=== PATIENT | male | born 1945 | race Caucasian/White ===

== ENCOUNTER 2017-07-13 23:42 | Emergency (ER) | payer MEDICARE ==
[~2017-07-13] VITALS: Ht 167.6 cm; Wt 85.3 kg
[2017-07-13 23:47] VITALS: BP 160/76; PULSE 69; RESP 14; TEMP 97.7; O2SAT 96
[2017-07-14] MEDS ORDERED: AMLO10TA2 PO (00:07)
[2017-07-14] MEDS ORDERED: LOVA10TA PO (00:07)
[2017-07-14] MEDS ORDERED: LOVA40TA PO (00:07)
[2017-07-14] MEDS ORDERED: TAMS5CAP PO (00:07)
[2017-07-14] MEDS ORDERED: FINA5TAB2 (00:07)
--- NOTE | 2017-07-14 00:25 | PD ---
HPI Chief Complaint: Complaint Time Seen by Provider: 00:23 Travel History International Travel<30 days: No Contact w/Intl Traveler<30days: No Traveled to known affect area: No History of Present Illness HPI 72-year-old male presents to the emergency department by private transportation for urinary retention. Patient has not had any urine output since catheter was removed this morning at urgent care. Patient had urinary catheter placed on Saturday in [place] prior to coming to [place] and had it removed by Saturday evening and was noting some decreased urine output traveled all day by car on Saturday and by Saturday evening had to stop in [place] to have urinary catheter placed his traveled with urinary catheter since then and had appointment with Dr. House on Saturday but he was out of the office and was told to come to the office on Saturday on Saturday morning was tired of having the catheter was causing him irritation so he went to urgent care to have it removed and now returns because of recurrent urinary retention. Patient denies fever chills. Patient takes no blood thinning agents. Patient has not noticed any blood clots or hematuria. PFSH Past Medical History Narrative Medical Dyslipidemia hypertension BPH; no tobacco use; nursing notes reviewed High Cholesterol: Yes Hypertension: Yes Medical other: Yes (BPH) Tetanus Vaccination: Unknown Influenza Vaccination: Yes Social History Alcohol Use: No Tobacco Use: No Substance Use: No Allergies-Medications (Allergen,Severity, Reaction): Coded Allergies: No Known Allergies (Unverified , 07/13/17) Reported Meds & Prescriptions Reported Meds & Active Scripts Active Reported Amlodipine (Amlodipine Besylate) 10 Mg Tab 10 Mg PO DAILY Finasteride 5 Mg Tab 5 Mg DAILY Do not crush. Flomax (Tamsulosin HCl) 0.4 Mg Cap 0.4 Mg PO HS Lovastatin 40 Mg Tab 40 Mg PO DAILY Review of Systems Except as stated in HPI: all other systems reviewed are Neg Physical Exam Narrative GENERAL: Well-developed well-nourished male no acute distress no respiratory distress SKIN: Warm and dry. HEAD: Normocephalic. EYES: No scleral icterus. No injection or drainage. NECK: Supple, trachea midline. No JVD or lymphadenopathy. CARDIOVASCULAR: Regular rate and rhythm without murmurs, gallops, or rubs. RESPIRATORY: Breath sounds equal bilaterally. No accessory muscle use. GASTROINTESTINAL: Abdomen soft, non-tender, nondistended after urinary catheter inserted. MUSCULOSKELETAL: No cyanosis, or edema. BACK: Nontender without obvious deformity. No CVA tenderness. Data Data Last Documented VS Vital Signs Date Time Temp Pulse Resp B/P (MAP) Pulse Ox O2 Delivery O2 Flow Rate FiO2 07/14/17 01:00 60 16 163/76 (105) 95 Room Air 07/13/17 23:47 97.7 Orders Orders Urinalysis - C+S If Indicated (07/14/17 00:23) Urinary Catheter Insert/Apply (07/14/17 00:23) Basic Metabolic Panel (Bmp) (07/14/17 00:23) Labs Laboratory Tests Test 07/14/17 00:44 Urine Color YELLOW Urine Turbidity CLEAR Urine pH 7.0 Urine Specific [place] 1.015 Urine Protein NEG mg/dL Urine Glucose (UA) NEG mg/dL Urine Ketones NEG mg/dL Urine Occult Blood SMALL Urine Nitrite NEG Urine Bilirubin NEG Urine Urobilinogen 0.2 MG/DL Urine Leukocyte Esterase NEG Urine RBC 15-19 /hpf Urine WBC 0-2 /hpf Urine Squamous Epithelial Cells 0-5 /hpf Urine Bacteria NONE /hpf Microscopic Urinalysis Comment CULT NOT INDICATED Blood Urea Nitrogen 14 MG/DL Creatinine 0.70 MG/DL Random Glucose 123 MG/DL Calcium Level 8.4 MG/DL Sodium Level 139 MEQ/L Potassium Level 3.7 MEQ/L Chloride Level 105 MEQ/L Carbon Dioxide Level 28.4 MEQ/L Anion Gap 6 MEQ/L Estimat Glomerular Filtration Rate 110 ML/MIN MDM Medical Decision Making Medical Screen Exam Complete: Yes Emergency Medical Condition: Yes Medical Record Reviewed: Yes Interpretation(s) UA: blood bmp: wnl bun/cr Differential Diagnosis Urinary retention, BPH, UTI, renal insufficient Narrative Course Bladder scan: 900 ml --urinary catheter inserted Urine specimen sent for urinalysis and BMP collected 1 L urine output after urinary catheter placed leg bag ordered Urinalysis shows RBCs and blood but no evidence for infection culture not indicated; BUN and creatinine values are in normal range Patient is stable for outpatient management Diagnosis Primary Impression: Urinary retention Referrals: Michael House MD 2 days Patient Instructions: General Instructions Additional Instructions: Increase fluid hydration Continue chronic medications as chronically prescribed Return to the emergency department for any concerns or change in condition Follow-up with urologist on Saturday as planned Disposition: DISCHARGE HOME Condition: Stable Mare Telles H. MD Jul 14, 2017 00:25
[2017-07-14 00:55] LABS: BILIRUBIN, URINE NEG (NEG); BLOOD, URINE SMALL (NEG); GLUCOSE,URINE NEG (NEG); KETONE, URINE NEG (NEG); NITRITE,URINE NEG (NEG); URINE COLOR YELLOW (YELLW/STRAW); URINE LEUKOCYTE ESTERASE NEG (NEG)
[2017-07-14 01:00] VITALS: BP 163/76; PULSE 60; RESP 16; O2SAT 95
[2017-07-14 01:00] LABS: RBC, URINE 15-19 /hpf (0-3); SQUAMOUS EPITHELIAL CELL URINE 0-5 /hpf (0-5); WBC, URINE 0-2 /hpf (0-5)
[2017-07-14 01:04] LABS: CALCIUM 8.4 MG/DL (8.5-10.1)
[2017-07-14 01:05] LABS: BICARBONATE 28.4 MEQ/L (21.0-32.0)
[2017-07-14 01:08] LABS: CREATININE 0.7 MG/DL (0.60-1.30)
[2017-07-14 01:23] VITALS: BP 149/85
== END 2017-07-14 01:35 | disposition home or self-care (01) ==
LOC: PHED 23:42
DX: R33.9 Retention of urine, unspecified (principal); E78.00 Pure hypercholesterolemia, unspecified; I10 Essential (primary) hypertension; N40.0 Benign prostatic hyperplasia without lower urinary tract symptoms; E78.5 Hyperlipidemia, unspecified; Z79.899 Other long term (current) drug therapy
CPT/HCPCS: 51702; 80048; 81001